=== PATIENT | female | born 1995 | race Caucasian/White ===

== ENCOUNTER 2016-12-04 20:50 | Emergency (ER) | payer OTHER ==
[2016-12-04] MEDS ORDERED: NORMAL SALINE 1,000 ML IV ONE (21:02)
--- NOTE | 2016-12-04 21:10 | ERNOTE ---
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 She began to have palpitations which she has had before. She has had as much as a 30 day event monitor with no specific diagnosis. She has been using natural "heart health" supplements but admits she has not seen any difference in her symptoms while taking it. She then began to have left sided chest pain up to 8/10 and stopped performing and laid down on the ground. She is unsure of any syncope while she was resting but doesn't think so. Her pain is now 2/10 Timing: other - improving Severity/Quality: severe, aching - initially, "sore" now. Location: central, left chest Chest Pain Radiation: no radiation Activities at Onset: activity Review of Systems - Review of Systems Constitutional: Absent: recent illness EYE: Present: no symptoms reported ENT: Present: no symptoms reported Respiratory: Present: shortness of breath Cardiology: Present: See HPI Gastrointestinal/Abdominal: Present: no symptoms reported Genitourinary: Present: no symptoms reported Musculoskeletal: Present: no symptoms reported Skin: Present: no symptoms reported Neurological: Present: anxiety Endocrine: Present: excessive sweating Hematologic/Lymphatic: Present: no symptoms reported - Patient's Past Medical History Patient History - Cardiac/Respiratory: Other - palpitations Physical Exam - Physical Exam General Appearance: Present: wd/wn, alert, mild distress Eye Exam: Normal inspection: bilateral, PERRL: bilateral, EOMI: bilateral Ears, Nose, Throat: Present: normal ENT inspection Neck: Present: normal inspection, nontender Respiratory: Present: no respiratory distress, normal breath sounds, no accessory muscle use, lungs clear Cardiovascular/Chest: Present: regular rate, rhythm, no murmur, normal peripheral pulses Gastrointestinal/Abdominal: Present: normal bowel sounds, nontender, nondistended Back Exam: Present: normal inspection, normal range of motion Extremity Exam: Present: normal inspection, normal range of motion, no edema Neurological Exam: Present: alert, oriented, no motor/sensory deficits Skin Exam: Present: normal color, warm/dry Lymphatic Exam: Present: no adenopathy ED Progress - Results and Orders Patient's Lab Results:: I have reviewed the patient's lab results. Results and Orders: Laboratory Tests 12/04/16 12/04/16 21:52 21:52 WBC 10.1 Hgb 14.5 Hct 41.2 Plt Count 192 Sodium 142 Potassium 3.6 Chloride 106 Carbon Dioxide 24.1 Anion Gap 15.5 H BUN 19 Creatinine 0.90 Est GFR (Non-Af Amer) 86 BUN/Creatinine Ratio 21.1 Random Glucose 106 Calcium 9.8 Calcium Adj for Albumin 9.3 Total Bilirubin 0.2 AST 69 H ALT 53 Alkaline Phosphatase 95 Troponin I Less than 0.017 Total Protein 7.8 Albumin 4.2 - Vital Signs Patient's Vital Signs:: I have reviewed the patient's vital signs. - X-Ray X-Ray #1 X-Ray: chest Interpretation: Interp. by me X-ray Comments: normal, no infiltrate, effusion or pneumothorax - Progress/Reassessment Progress:: Pain free at discharge Departure - Departure Clinical Impression: Heat exhaustion Qualifiers: Encounter type: initial encounter Qualified Code(s): T67.5XXA - Heat exhaustion , unspecified, initial encounter Disposition: Home self-care Condition: Good Instructions: Heat Exhaustion Information, Rehydration, Adult Additional Instructions: Drink plenty of fluids especially with electrolytes and some sugar
[2016-12-04 21:55] LABS: Hematocrit 41.2 % (37.0-47.0); Hemoglobin 14.5 gm/dL (12.5-16.0); Mean Cell Volume 87.8 fl (78-100); Mean Corpuscular Hemoglobin 30.9 pg (27-31); Mean Corpuscular Hgb Conc 35.2 g/dl (32-36); Mean Platelet Volume 9.3 fl (6.0-9.5); Neutrophil % 69.3 % (42-75.0); Platelet Count 192 K/mm3 (150-450); Red Blood Count 4.69 M/mm3 (4.2-5.4); Red Cell Distribution Width 12.4 % (11.5-14.0); White Blood Count 10.1 K/mm3 (4.0-10.5)
[2016-12-04 22:15] LABS: ALT 53 U/L (19-67); AST 69 U/L (0-48); Albumin * 4.2 gm/dl (3.4-5.0); Alkaline Phosphatase * 95 U/L (50-170); Anion Gap 15.5 mmol/L (6.8-13.8); BUN/Creatinine Ratio 21.1 (9.0-21.6); Bilirubin, Total 0.2 mg/dL (0.0-1.1); Blood Urea Nitrogen 19 mg/dL (3-23); Ca. Corrected For Albumin 9.3 mg/dL (8.4-10.2); Calcium * 9.8 mg/dL (7.9-10.9); Carbon Dioxide 24.1 mmol/L (24-32.6); Chloride 106 mmol/L (97-106); Glucose * 106 mg/dL (70-110); Potassium 3.6 mmol/L (3.4-4.6); Sodium 142 mmol/L (132-142); Total Protein 7.8 gm/dL (6.2-8.2); Troponin I Less than 0.017 ng/ml (0.00-0.10)
[2016-12-04 23:24] VITALS: BP 98/65
== END 2016-12-04 23:34 | disposition home or self-care (01) ==
LOC: ER 20:50
DX: T67.5XXA Heat exhaustion, unspecified, initial encounter (principal)